=== PATIENT | female | born 1975 | race Caucasian/White ===

== ENCOUNTER 2017-05-13 13:40 | Emergency (ER) | payer BC ==
[2017-05-13] MEDS ORDERED: Pantoprazole 40 MG Vial IVPUSH ONE (15:36)
[2017-05-13] MEDS ORDERED: Sodium Chloride 0.9% 250 ML IV SCH (15:50)
[2017-05-13] MEDS ORDERED: Ondansetron 4 MG/2 ML SDV ONE (15:50)
[2017-05-13] MEDS ORDERED: Ondansetron 4 MG/2 ML SDV IVPUSH ONE (15:50)
[2017-05-13 17:16] VITALS: BP 119/73
--- NOTE | 2017-05-16 12:18 | ER ---
DATE SEEN: 05/13/2017 TIME SEEN: The patient was seen 1430 hours. HISTORY OF PRESENT ILLNESS: This is a pleasant woman, who has had a decrease in menstruation because she is close to menopause. She has oligomenorrhea: heavy menstrual periods in some months and then absence of menstrual periods in other months. Las menstrual period began in early part of April. She had a bite of steak and green pepper for lunch today. 15 minutes later, she had extensive heartburn. She vomited 15 times at the scene, at home, and also then 2 times in the ED. She has mild interscapular discomfort. She has pain when she takes a deep breath and it abbott in her midsternal area. It radiates to her neck. No past medical history. She feels that she has to hold her breath because she feels uncomfortable. Also notes she has shortness of breath with mild sweating. No recent alcohol. She had one spritz drink on Saturday ( very small amount of alcohol). No history of pancreatitis. She describes this pain 10/10 initially, but now it is about 4/10. The first episode of pain was experienced approximately a week ago and lasted half an hour . Today, the pain lasted 3 to 4 hours. Today's pain was different than anything she has she ever experienced in the past. She experienced her 1 st episode of abdominal discomfort after eating food with hot sauce. The discomfort then relented in half an hour. Today's pain is the second bout of abdominal discomfort she has had in 2 weeks. Often times a week or week and a half between the bouts. ALLERGIES: None. MEDICATIONS: None. SERIOUS ILLNESSES: None. SOCIAL HISTORY: She is and lives with her . CURRENT MEDICATIONS: 1. Vyvanse 50 mg daily. 2. Bupropion 150 mg daily. The latter is designed to help her stop smoking. REVIEW OF SYSTEMS: Otherwise, negative. PHYSICAL EXAMINATION: VITAL SIGNS: Blood pressure 118/82, heart rate 74 and regular, respirations 19, oxygen saturation 100%, and temperature is 36.9 degrees. GENERAL: The patient is in mild discomfort. She is asthenic. Good communicator and well dressed. Not overweight. HEENT: PERRLA intact. Pharynx without abnormality. No dry mucosa. NECK: Supple. No thyromegaly or masses in neck. LUNGS: Clear to auscultation. No rales, rhonchi, or wheezes. HEART: S1, S2. No murmur. No irregular rate and rhythm. No tachycardia. No diaphoresis. No compromised capillary fill. ABDOMEN: [id number] abdominal discomfort and guarding. No rebound. No focal masses. PELVIC: Not performed. RECTAL: Not performed. EXTREMITIES: Lower extremities without abnormality. Deep tendon reflexes normal. NEUROLOGIC: Cranial nerves 2 through 12 intact. Oriented x3. LABORATORY DATA: Because the patient had episode of diaphoresis with abdominal pain, the differential includes potential myocardial issues. Her troponin is negative at 0.01. An automated chemistry is normal except for bicarb was slightly elevated at 31. Otherwise, sodium 136, potassium 3.7, chloride 101, BUN is 15, and creatinine 0.7. Liver enzymes are normal. White count 9900, PMNs 82, lymphocytes 13, hemoglobin 13.7, and platelets 247,000. ASSESSMENT: Most likely, her symptoms related to acid peptic disease because she had spicy foods (pain last time 1-2 weeks ago). Today she received Protonix 40 mg IV flush and had dramatic decrease in pain. She is very pleased. Plan is Protonix 40 mg b.i.d. DIAGNOSES: Gastritis, duodenitis, possible gastric ulcer and/or reflux, and/or esophagitis. PLAN: Follow up with doctor in a week. Gradual progressively increase diet as tolerated. Avoid alcohol and smoking. /[id number] NAIMA/MOLLY MARIA
== END 2017-05-13 17:05 | disposition home or self-care (01) ==
LOC: FB.ED 13:40
DX: K29.70 Gastritis, unspecified, without bleeding (principal); K29.80 Duodenitis without bleeding; Z79.899 Other long term (current) drug therapy
CPT/HCPCS: 36415; 80053; 81001; 82150; 84484; 85025; 93005; 96361; 96374; 96375; 99284; C9113; J2405; J7050